=== PATIENT | female | born 1955 | race Hispanic/Latino ===

== ENCOUNTER 2017-04-27 08:53 | Emergency (ER) | payer MEDICAID, OTHER ==
[2017-04-27 09:08] VITALS: RESP 16
--- NOTE | 2017-04-27 09:40 | ED PDOC ---
HPI: General Adult Time Seen by Provider: 04/27/17 09:09 Chief Complaint (Nursing): Lower Extremity Problem/Injury Chief Complaint (Provider): Homeless History Per: EMS History/Exam Limitations: no limitations Onset/Duration Of Symptoms: Hrs (prior to arrival ) Additional History Per: Patient Additional Complaint(s): Latisha Becker is a 62 year old homeless female brought to the ED by ambulance. EMS reports finding the patient sleeping outside between two cars prior to arrival. The patient reports she was not in the fdc because there was no space. She offers no complaints at this time. PMD: None provided Past Medical History Reviewed: Historical Data, Nursing Documentation, Vital Signs Vital Signs: Last Vital Signs Temp 97.4 F L 04/27/17 09:03 Pulse 92 H 04/27/17 09:03 Resp 16 04/27/17 09:03 BP 142/101 H 04/27/17 09:03 Pulse Ox 99 04/27/17 09:03 - Medical History PMH: HTN - Family History Family History: States: Unknown Family Hx - Social History Current smoker - smoking cessation education provided: Yes Alcohol: > 2 Drinks/Day Drugs: Denies - Immunization History Hx Tetanus Toxoid Vaccination: No Hx Influenza Vaccination: No Hx Pneumococcal Vaccination: No - Home Medications Home Medications: Ambulatory Orders Medication Instructions Recorded No Known Home Med 10/20/15 - Allergies Allergies/Adverse Reactions: Allergies Allergy/AdvReac Type Severity Reaction Status Date / Time No Known Allergies Allergy Verified 04/27/17 09:03 Review of Systems ROS Statement: Except As Marked, All Systems Reviewed And Found Negative Constitutional: Negative for: Other (patient offers no medical complaints) Physical Exam - Reviewed Nursing Documentation Reviewed: Yes Vital Signs Reviewed: Yes - Physical Exam Appears: Positive for: Non-toxic, No Acute Distress Head Exam: Positive for: ATRAUMATIC, NORMOCEPHALIC Skin: Positive for: Normal Color, Warm, Dry Eye Exam: Positive for: Normal appearance, EOMI ENT: Positive for: Normal ENT Inspection Neck: Positive for: Normal, Painless ROM, Supple Cardiovascular/Chest: Positive for: Regular Rate, Rhythm, Chest Non Tender Respiratory: Positive for: Normal Breath Sounds. Negative for: Respiratory Distress Gastrointestinal/Abdominal: Positive for: Normal Exam, Soft. Negative for: Tenderness Back: Positive for: Normal Inspection Extremity: Positive for: Normal ROM. Negative for: Deformity Neurologic/Psych: Positive for: Alert, Oriented (x3). Negative for: Motor/ Sensory Deficits - ECG O2 Sat by Pulse Oximetry: 99 (RA) Pulse Ox Interpretation: Normal Medical Decision Making Medical Decision Making: Time: 09:09 Impression: Homeless Plan: * Will evaluate patient for medical clearance Scribe Attestation: Documented by Deja Ashford, acting as a scribe for Lilian Corley MD. Provider Scribe Attestation: All medical record entries made by the Scribe were at my direction and personally dictated by me. I have reviewed the chart and agree that the record accurately reflects my personal performance of the history, physical exam, medical decision making, and the department course for this patient. I have also personally directed, reviewed, and agree with the discharge instructions and disposition. Disposition - Disposition
[2017-04-27 11:11] VITALS: BP 125/58; PULSE 87; TEMP 98.7; O2SAT 96
== END 2017-04-27 14:35 | disposition home or self-care (01) ==
LOC: H.ER 08:53
DX: Z59.0 Homelessness (principal); I10 Essential (primary) hypertension